=== PATIENT | male | born 1995 | race Caucasian/White ===

== ENCOUNTER 2016-09-02 12:25 | Observation (INO) | payer BC, OTHER ==
[2016-09-02] MEDS ORDERED: Sodium Chloride 0.9% 1,000 ML IV ONE (12:53)
--- NOTE | 2016-09-02 12:54 | EDM.PDOC ---
ED HPI GENERAL MEDICAL PROBLEM - General Chief Complaint: General Stated Complaint: PASSED OUT Time Seen by Provider: 09/02/16 12:35 Source of Information: Reports: Patient, Other (co-worker) History Limitations: Reports: Other (Pt does not recall much of episode) - History of Present Illness INITIAL COMMENTS - FREE TEXT/NARRATIVE: HISTORY AND PHYSICAL: History of present illness: [Patient is brought to the emergency room by his coworker. This morning he was at work and was bent over at the waist working on a tool. 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 He fell backwards into a wall and slid against it, hitting the right side of his head on a tool that was on the ground. The patient has no recollection of these events and remembers only working on the tool and then sitting in a pickup answering questions of his coworkers. Coworker reports that after he hit his head and was laying on the ground, the patient's body was twitching and he had some drooling and frothing at the mouth. This resolved within several minutes. Patient states that he is now feeling improved. Feels that his mind and thoughts are fuzzy and not entirely clear. He does not feel lightheaded. No generalized headache. He does have some head pain where he hit the object when he fell. No swelling or wounds have been noted. He did not have any chest pain or shortness of breath or difficulty breathing. He ate breakfast this morning and was feeling well. Today is his first day working in [place]. He was wearing 2 longsleeved T-shirts and coveralls, but doesn't think that he felt over heated.] Review of systems: As per history of present illness and below otherwise all systems reviewed and negative. Past medical history: As per history of present illness and as reviewed below otherwise noncontributory. Surgical history: As per history of present illness and as reviewed below otherwise noncontributory. Social history: No reported history of drug or alcohol abuse. Family history: As per history of present illness and as reviewed below otherwise noncontributory. Physical exam: HEENT: Atraumatic, normocephalic. Area of tenderness to right parietal scalp just above right ear. TMs are pearly song and without erythema or effusions. Nose is patent and without discharge. Oral mucosa membranes are pink and moist without tonsillar swelling erythema or exudate. PERRLA. EOMI. No nystagmus. No tenderness with palpation of C-spine and surrounding musculature. Neck is supple no lymphadenopathy. Lungs: Clear to auscultation. chest nontender. Heart: S1S2, heart is regular rate and rhythm no murmur gallop click or rub. No S3-S4. Abdomen: Soft, nondistended, nontender. Bowel sounds are normoactive throughout. Negative for masses or hepatosplenomegaly. Negative for costovertebral tenderness. Genitourinary: Deferred. Rectal: Deferred. Extremities: Atraumatic, negative for cords or calf pain. Has full range of motion to all 4 extremities. Neurovascular unremarkable. Neuro: Awake, alert, oriented. Motor and sensory unremarkable throughout. Exam nonfocal. Diagnostics: [Head CT without contrast, CBC, CMP, urinalysis] Therapeutics: [1 liter normal saline] Impression: [Syncopal episode, head contusion] Plan: [Reviewed w/ patient that his Head CT and labs are within normal limits. Case was reviewed with Dr. Chavez who agrees to accept patient to observation with telemetry. This is reviewed with the patient and he is in agreement with today' s plan. All of his questions are answered and concerns are addressed.] Definitive disposition and diagnosis as appropriate pending reevaluation and review of above. head Pain Score (Numeric/FACES): 5 - Related Data Allergies Allergy/AdvReac Type Severity Reaction Status Date / Time No Known Allergies Allergy Verified 09/02/16 12:37 Home Meds: Home Meds . [No Known Home Meds] 09/02/16 [History] Past Medical History - Past Health History Medical/Surgical History: Denies Medical/Surgical History - Past Surgical History Musculoskeletal Surgical History: Reports: Shoulder Surgery Social & Family History - Family History Family Medical History: Noncontributory - Tobacco Use Smoking Status *Q: Never Smoker - Recreational Drug Use Recreational Drug Use: No ED ROS GENERAL - Review of Systems Review Of Systems: ROS reveals no pertinent complaints other than HPI. ED EXAM, GENERAL - Physical Exam Exam: See Below Course - Vital Signs Last Recorded V/S: Last Vital Signs Temp 97.8 F 09/02/16 13:31 Pulse 58 L 09/02/16 13:31 Resp 18 09/02/16 13:31 BP 118/75 09/02/16 13:31 Pulse Ox 97 09/02/16 13:31 - Orders/Labs/Meds Orders: Active Orders 24 hr Category Date Time Status Patient Status [ADT] Stat ADT 09/02/16 14:33 Active Labs: Laboratory Tests 09/02/16 09/02/16 09/02/16 Range/Units 13:16 13:16 13:28 WBC 9.07 (4.0-11.0) K/uL RBC 4.54 (4.50-5.90) M/uL Hgb 15.7 (13.0-17.0) g/dL Hct 43.7 (38.0-50.0) % MCV 96.3 (80.0-98.0) fL MCH 34.6 H (27.0-32.0) pg MCHC 35.9 (31.0-37.0) g/dL RDW Std Deviation 43.6 (28.0-62.0) fl RDW Coeff of Bandar 12 (11.0-15.0) % Plt Count 252 (150-400) K/uL MPV 9.20 (7.40-12.00) fL Neut % (Auto) 72.7 (48.0-80.0) % Lymph % (Auto) 20.7 (16.0-40.0) % Coal % (Auto) 5.8 (0.0-15.0) % Eos % (Auto) 0.6 (0.0-7.0) % Baso % (Auto) 0.2 (0.0-1.5) % Neut # (Auto) 6.6 H (1.4-5.7) K/uL Lymph # (Auto) 1.9 (0.6-2.4) K/uL Coal # (Auto) 0.5 (0.0-0.8) K/uL Eos # (Auto) 0.1 (0.0-0.7) K/uL Baso # (Auto) 0.0 (0.0-0.1) K/uL Nucleated RBC % 0.0 /100WBC Nucleated RBCs # 0 K/uL Sodium 140 (136-146) mmol/L Potassium 3.9 (3.5-5.1) mmol/L Chloride 109 (98-110) mmol/L Carbon Dioxide 21 (21-31) mmol/L BUN 14 (6.0-23.0) mg/dL Creatinine 1.1 (0.6-1.5) mg/dL Est Cr Clr Drug Dosing 119.04 mL/min Estimated GFR (MDRD) > 60.0 ml/min Glucose 95 (60-110) mg/dL Calcium 9.5 (8.8-10.8) mg/dL Total Bilirubin 1.5 (0.1-1.5) mg/dL AST 20 (5-40) IU/L ALT 18 (8-54) IU/L Alkaline Phosphatase 52 (40-150) Total Protein 8.2 H (6.0-8.0) g/dL Albumin 4.5 (3.5-5.0) g/dL Globulin 3.7 H (2.0-3.5) g/dL Albumin/Globulin Ratio 1.2 L (1.3-2.8) Urine Color STRAW Urine Appearance CLEAR Urine pH 5.5 (5.0-8.0) Ur Specific [place] <= 1.005 (1.001-1.035) Urine Protein NEGATIVE (NEGATIVE) mg/dL Urine Glucose (UA) NEGATIVE (NEGATIVE) mg/dL Urine Ketones NEGATIVE (NEGATIVE) mg/dL Urine Occult Blood NEGATIVE (NEGATIVE) Urine Nitrite NEGATIVE (NEGATIVE) Urine Bilirubin NEGATIVE (NEGATIVE) Urine Urobilinogen 0.2 (<2.0) EU/dL Ur Leukocyte Esterase NEGATIVE (NEGATIVE) Urine RBC 0-1 (0-2/HPF) Urine WBC 0-1 (0-5/HPF) Ur Epithelial Cells RARE (NONE-FEW) Urine Bacteria FEW (NEGATIVE) Meds: Medications Discontinued Medications Generic Name Dose Route Start Last Admin Trade Name Chrisq PRN Reason Stop Dose Admin Sodium Chloride 1,000 mls @ 999 mls/hr 09/02/16 12:53 09/02/16 13:00 Normal Saline IV 09/02/16 13:53 999 mls/hr STAT ONE Administration Departure - Departure Time of Disposition: 14:00 Disposition: Refer to Observation Condition: Good Clinical Impression: Syncope Qualifiers: Syncope type: unspecified Qualified Code(s): R55 - Syncope and collapse - Discharge Information Forms: ED Department Discharge - My Orders Last 24 Hours: My Active Orders 09/02/16 14:33 Patient Status [ADT] Stat - Assessment/Plan Last 24 Hours: My Active Orders 09/02/16 14:33 Patient Status [ADT] Stat
--- NOTE | 2016-09-02 13:38 | CT ---
EXAMINATION: Non contrast CT head. Coronal and sagittal reformats. HISTORY: Pain FINDINGS: No evidence of intra or extra axial hemorrhage, mass, midline shift, hydrocephalus or edema. No hypoattenuation changes in the major vascular territories to suggest acute infarct. No abnormal intracranial calcifications are detected. No evidence of substantial vascular calcifica tions. Paranasal sinuses and mastoid air cells are well aerated without substantial findings. The orbits a nd globes are symmetric. Pituitary fossa appears unremarkable. Calvarium is intact. No evidence of skull fracture. IMPRESSION: No acute intracranial findings.
[2016-09-02 13:45] LABS: CHLORIDE,CL 109 mmol/L (98-110); SODIUM,NA 140 mmol/L (136-146)
[2016-09-02] MEDS ORDERED: Ondansetron 4 MG/2 ML SDV IVPUSH PRN (15:35)
[2016-09-02] MEDS ORDERED: Acetaminophen 325 MG Tab PO PRN (15:35)
[2016-09-02] MEDS: Sodium Chloride 0.9% 1,000 ML IV SCH (16:28)
--- NOTE | 2016-09-02 16:50 | PCM.HP ---
H&P History of Present Illness - General Date of Service: 09/02/16 Admit Problem/Dx: Syncope Source of Information: Patient History Limitations: Reports: No Limitations - History of Present Illness Initial Comments - Free Text/Narative: This 20 year old male, otherwise healthy, presented to the ED today with co- workers. They reported he passed out while working this afternoon. He doesn't recall much of the event, but reports he felt warm prior to passing out. The last thing he remembers was bending over working on a tool, he then stood up and doesn't remember anything else. His co-workers told the ED provider he fell back hitting his head near the R temporal region. The co-workers also noted after falling and hitting his head, that he was convulsing and had frothy saliva. He did not bite his tongue and had no incontinence of bowel or bladder. He woke up shortly after.This is when he remembers people in his face asking him questions. He feels tired now, but otherwise after getting some fluids in the ED. All labwork in the ED was WNL. Head CT negative. EKG SR. UA negative as well as Utox. VS stable. He will be admitted for syncope. head Pain Score (Numeric/FACES): 5 - Related Data Allergies/Adverse Reactions: Allergies Allergy/AdvReac Type Severity Reaction Status Date / Time No Known Allergies Allergy Verified 09/02/16 12:37 Home Medications: Home Meds . [No Known Home Meds] 09/02/16 [History] Past Medical History - Past Health History Medical/Surgical History: Denies Medical/Surgical History Neurological History: Reports: Concussion (in the past due to sports). Denies: Migraines, Seizure - Past Surgical History Musculoskeletal Surgical History: Reports: Shoulder Surgery Social & Family History - Family History Family Medical History: Noncontributory - Tobacco Use Smoking Status *Q: Never Smoker - Recreational Drug Use Recreational Drug Use: No H&P Review of Systems - Review of Systems: Review Of Systems: See Below General: Reports: No Symptoms. Denies: Fever, Malaise, Fatigue HEENT: Reports: No Symptoms. Denies: Headaches, Hearing Changes, Sinus Congestion, Sore Throat, Visual Changes Pulmonary: Reports: No Symptoms. Denies: Shortness of Breath, Wheezing, Cough, Sputum Cardiovascular: Reports: No Symptoms. Denies: Chest Pain, Palpitations, Edema, Lightheadedness Gastrointestinal: Reports: No Symptoms. Denies: Abdominal Pain, Black Stool, Bloody Stool, Distension, Nausea, Vomiting Musculoskeletal: Reports: Other (slight tenderness to R temporal region, where he hit is head). Denies: Neck Pain Psychiatric: Denies: Confusion, Hallucinations Neurological: Reports: Syncope. Denies: Dizziness, Headache, Numbness, Paresthesia, Seizure, Trouble Speaking Hematologic/Lymphatic: Reports: No Symptoms Immunologic: Reports: No Symptoms Exam - Exam Exam: See Below - Vital Signs Vital Signs: Last Vital Signs Temp 97.4 F 09/02/16 16:18 Pulse 78 09/02/16 16:18 Resp 18 09/02/16 16:18 BP 112/74 09/02/16 16:18 Pulse Ox 97 09/02/16 16:18 Orthostatic Blood Pressure [ 112/74 Sitting] Weight: 92.4 kg - Exam General: Alert, Oriented, Cooperative HEENT: Conjunctiva Clear, Hearing Intact, Nares Patent, Posterior Pharynx Clear , Pupils Equal, Pupils Reactive, TMs Clear, Other (tenderness to R temporal region, no bruising or swelling noted.) Neck: Supple, Trachea Midline, Full Range of Motion. No: Lymphadenopathy Cardiovascular: Regular Rate, Regular Rhythm, Normal S1, Normal S2. No: Irregular Rhythm, Bradycardia, Tachycardia, Systolic Murmur Abdomen: Normal Bowel Sounds, Soft Back Exam: Full Range of Motion Extremities: Normal Inspection, Normal Pulses Neuro Extensive - Mental Status: Alert, Oriented x3, Normal Mood/Affect, Normal Cognition Neuro Extensive - Motor, Sensory, Reflexes: CN II-XII Intact, Normal Gait, Normal Reflexes Psychiatric: Alert, Normal Affect, Normal Mood - Patient Data Result Diagrams: 09/02/16 13:16 09/02/16 13:16 EKG INTERPRETATION EKG Date: 09/02/16 Rhythm: NSR Rate (Beats/Min): 59 [place]: Normal QRS: Normal ST-T: Elevated (repolarization) QT: Normal *Q Meaningful Use (ADM) - VTE *Q VTE Criteria *Q: - VTE Risk Assess *Q Each Risk Factor Represents 1 Point: None Total Score 1 Point Risk Factors: 0 Each Risk Factor Represents 2 Points: None Total Score 2 Point Risk Factors: 0 Each Risk Factor Represents 3 Points: None Total Score 3 Point Risk Factors: 0 Each Risk Factor Represents 5 Points: None Total Score 5 Point Risk Factors: 0 Venous Thromboembolism Risk Factor Score *Q: 0 - Stroke *Q Stroke Criteria *Q: - AMI *Q AMI Criteria *Q: - Problem List (1) Syncope SNOMED Code(s): 749743201 ICD Code: R55 - SYNCOPE AND COLLAPSE Status: Acute Current Visit: Yes Qualifiers: Syncope type: unspecified Qualified Code(s): R55 - Syncope and collapse (2) Vasovagal episode SNOMED Code(s): 656433438 ICD Code: R55 - SYNCOPE AND COLLAPSE Status: Acute Current Visit: Yes Problem List Initiated/Reviewed/Updated: Yes Orders Last 24hrs: Active Orders 24 hr Category Date Time Status Antiembolic Devices [RC] PER UNIT ROUTINE Care 09/02/16 15:36 Active Intake and Output [RC] Q12H Care 09/02/16 15:35 Active Orthostatic Vital Signs [RC] Q12HR Care 09/02/16 15:35 Active Oxygen Therapy [RC] PRN Care 09/02/16 15:35 Active Telemetry Monitoring [Cardiac Monitoring] [RC] . Care 09/02/16 15:36 Active DIRECTED Up With Assistance [RC] ASDIRECTED Care 09/02/16 15:35 Active Vital Signs [RC] Q4H Care 09/02/16 15:35 Active Regular Diet [DIET] Diet 09/02/16 Dinner Active Acetaminophen [Tylenol] Med 09/02/16 15:35 Active 650 mg PO Q4H PRN Ondansetron [Zofran] Med 09/02/16 15:35 Active 4 mg IVPUSH Q4H PRN Sodium Chloride 0.9% [Normal Saline] 1,000 ml Med 09/02/16 15:45 Active IV ASDIRECTED Sequential Compression Device [OM.PC] Per Unit Routine Oth 09/02/16 15:35 Ordered Resuscitation Status Routine Resus Stat 09/02/16 15:35 Ordered Medication Orders Acetaminophen (Tylenol) 650 mg PO Q4H PRN PRN Reason: Pain Sodium Chloride (Normal Saline) 1,000 mls @ 125 mls/hr IV ASDIRECTED JOANNE Ondansetron HCl (Zofran) 4 mg IVPUSH Q4H PRN PRN Reason: Nausea Assessment/Plan Comment:: This 20 year old male admitted with episode of syncope 1. Syncope: Likely vasovagal. Orthostatic VS stable, slight decrease upon sitting and standing. Will continue IVFs overnight. Monitor on telemetry for arrhythmias. Did speak with Dr. Chandler regarding twitching noted after fall, since no tongue biting or incontinence she wouldn't suspected seizure like activity, could be from syncope itself. VTE prophylaxis: SCDs Dispo: Likely discharge in am Discharge plan: Discharge Diagnoses: Vasovagal syncope. Lefty was monitored overnight on telemetry, which remained SR to SB. He has had no complaints of lightheadedness, dizziness, or palpitations or syncope. Examination remains negative. He will be working for the next 7 days and then returning home to [place]. He wants to follow up with PCP in [place]. Syncope due to vasovagal. Encouraged to stay well hydrated while working and make slower movements in changing positions. He is encouraged to return to ED or clinic if concerns should arise.
[2016-09-03] MEDS: Sodium Chloride 0.9% 1,000 ML IV SCH (00:37)
[2016-09-03 08:51] VITALS: BP 117/79
== END 2016-09-03 12:15 | disposition home or self-care (01) ==
LOC: MW.ED 12:25 → MW.MS 15:34
PROVIDERS: ADMIT Internal Medicine; ATTEND Internal Medicine
DX: R55 Syncope and collapse (principal); Z98.890 Other specified postprocedural states
CPT/HCPCS: 36415; 70450; 80053; 80305; 81001; 85025; 93005; 96360; 96361; 99285; G0378; J7040